=== PATIENT | female | born 1975 | race Caucasian/White ===

== ENCOUNTER → 2017-10-28 | Day surgery (SDC) | payer OTHER ==
[~2017-10-28] VITALS: Ht 167.6 cm; Wt 84.8 kg
[~2017-10-28] MED LIST: ASPIRIN325 M2 PO; ATIVAN1 M1 PO; CHROMIUM PIC1000 MCG PO; CROMOLYN SODIUM10 M1 OU; EFFEXOR XR150 M1 PO; EFFEXOR XR75 M1 PO; GLUCOPHAGE1000 M1 PO; LACTULOSE10 GM/153 PO; MIRALAX17 G1 PO; MULTIVITAMINS1 EAC9 PO; REFRESH OPTIVE15 M1 OU; SLOW RELEASE I143 MG PO; SUPER B COMPLE150 MG PO; SYNTHROID150 MCG PO; SYNTHROID75 MCG PO; VITAMIN D2000 UNIT PO; WELLBUTRIN XL150 M2 PO; YAZ 28 TABLET1 EACH PO; ZADITOR5 ML OU
--- NOTE | 2017-10-28 14:57 | Operative Report ---
Operative/Inv Procedure Report Surgery Date: 10/28/17 Name of Procedure: Bilateral breast reduction - excessive, intraoperative lymph node biopsy Pre-Operative Diagnosis: Significant Bilateral symptomatic macromastia Post-Operative Diagnosis: Same Estimated Blood Loss: scant (250) Surgeon/Sap Portal Architect: Palomo Odonnell MD Anesthesia: general endotracheal tube Operative/Procedure Note Note: The patient was counseled multiple times in regards the procedure the alternatives the risks and expectation as relates to her request for surgical intervention to treat symptomatic macromastia. She was given a SPS informed consent and has no questions regarding it other than generalities. I discussed them in detail. No guarantees were given in regards to cup size further weight loss in the future could make the breast too small for her liking and he'll definitely be some degree of asymmetry postoperative. We talked about risk of nipple or skin loss infection bleeding hematoma open wounds pain and numbness. Once agreed informed consent was signed. She was marked in the standing position with a tape measure for an inferior pedicle Gu pattern technique. She signed informed consent. She was taken to the operating placed supine on the table. Venodyne boots were placed the chest was prepped and draped in usual sterile fashion after intubation and intravenous antibiotics. Inferior pedicle Gu pattern technique was developed by de-epithelializing the inferior pedicle. Skin flaps were developed and the segments were removed medially superiorly and laterally. Of note on the right breast there was a soft tissue mass that was identified separate from the breast tissue. He was sent for frozen section analysis after clipping the area of removal and found to be a benign lymph node. 3 layer closure was carried out after marking the nipple areola complex in the sitting position.
== END ==
LOC: STS 01:45
DX: N62 Hypertrophy of breast (principal); M54.5 Low back pain; R59.0 Localized enlarged lymph nodes; N64.89 Other specified disorders of breast; E03.9 Hypothyroidism, unspecified; K21.9 Gastro-esophageal reflux disease without esophagitis
CPT/HCPCS: 36415; 81025; J0690; J2250; J2405; J3250; J3490; Q9968